=== PATIENT | female | born 1965 | race Caucasian/White ===

== ENCOUNTER 2018-08-05 11:46 | Emergency (ER) | payer OTHER, BC | END 2018-08-05 15:46 | disposition home or self-care (01) | LOC: JER 11:46 ==

== ENCOUNTER 2018-11-30 07:27 | Day surgery (SDC) | payer BC, OTHER ==
[2018-11-29 10:34] VITALS: BMI 33.5
[2018-11-30 07:56] LABS: HEMATOCRIT 45.2 % (32.4-45.2); HEMOGLOBIN 14.9 GM/dL (10.7-15.3); MCH 29.2 pg (25.7-33.7); MCHC 32.9 g/dl (32.0-36.0); MEAN CELL VOLUME 88.7 fl (80-96); MEAN PLT VOLUME 9.7 fl (7.5-11.1); PLATELET COUNT 166 K/MM3 (134-434); RBC 5.09 M/mm3 (3.60-5.2); RDW 14.3 % (11.6-15.6); WHITE BLOOD COUNT 5.8 K/mm3 (4.0-10.0)
[2018-11-30 08:17] LABS: INR 1.11 (0.83-1.09); PROTHROMBIN TIME (PATIENT) 13.1 SEC (9.7-13.0)
[2018-11-30 08:27] LABS: ALBUMIN 3.7 g/dl (3.4-5.0); BILIRUBIN,TOTAL 0.5 mg/dL (0.2-1); BLOOD UREA NITROGEN 8.9 mg/dL (7-18); CALCIUM 9.3 mg/dL (8.5-10.1); CREATININE 0.7 mg/dL (0.55-1.3); POTASSIUM 4.3 mmol/L (3.5-5.1)
[2018-11-30 09:07] VITALS: TEMP 97.8
[2018-11-30 10:59] VITALS: BP 127/74; PULSE 53
--- NOTE | 2018-12-03 17:07 | PATH ---
Surgical Pathology Report Patient Name: FELA RAPHAEL [facility]. Rec. #: [id number] /Age/Gender: 1965 (Age: 53) / F Account: [id number] Location: U-ENDOSCOPY Taken: 11/30/2018 Received: 11/30/2018 Reported: 12/03/2018 Physicians: Annalise Sy M.D. Specimen(s) Received A: RIGHT COLON POLYPS B: TRANSVERSE COLON POLYP C: RECTAL POLYPS Clinical History Colon adenoma Postoperative diagnosis: Polyps, diverticulosis Final Diagnosis A. COLON POLYPS, RIGHT, POLYPECTOMY: TUBULAR ADENOMA(S). HYPERPLASTIC POLYP(S). B. TRANSVERSE COLON POLYP, POLYPECTOMY: TUBULAR ADENOMA. C. RECTAL POLYPS, POLYPECTOMY: HYPERPLASTIC POLYP(S). Electronically Signed Joann Willams M.D. Gross Description A. Received in formalin, labeled "right colon polyps" are multiple (10) donnelly, irregular portions of soft tissue measuring 0.3 and 0.4 cm. in greatest dimension. The specimens are submitted in toto in one cassette. B. Received in formalin, labeled "transverse colon polyp" is a donnelly, irregular portion of soft tissue measuring 0.2 cm. in greatest dimension. The specimen is submitted in toto in one cassette. C. Received in formalin, labeled "rectal polyps" are 2 donnelly, irregular portions of soft tissue measuring 0.2 cm. in greatest dimension. The specimens are submitted in toto in one cassette. MLSZ/11/30/2018 sanml/11/30/2018
== END 2018-11-30 10:55 | disposition home or self-care (01) ==
LOC: JASU-ENDO 07:27
PROVIDERS: ATTEND Internal Medicine Gastroenterology
PROC: 0DBL8ZX Excision of Transverse Colon, Via Natural or Artificial Opening Endoscopic, Diagnostic (ICD-10-PCS; 2018-11-30)
PROC: 0DBP8ZX Excision of Rectum, Via Natural or Artificial Opening Endoscopic, Diagnostic (ICD-10-PCS; 2018-11-30)
PROC: 0DBK8ZX Excision of Ascending Colon, Via Natural or Artificial Opening Endoscopic, Diagnostic (ICD-10-PCS; principal; 2018-11-30 09:30)
DX: Z86.010 Personal history of colon polyps (principal); D12.2 Benign neoplasm of ascending colon; D12.3 Benign neoplasm of transverse colon; K63.5 Polyp of colon; K62.1 Rectal polyp; K57.30 Diverticulosis of large intestine without perforation or abscess without bleeding
CPT/HCPCS: 36415; 80053; 84703; 85027; 85610; 88305-TC

== ENCOUNTER 2022-01-13 09:08 | Emergency (ER) | payer BC, OTHER ==
[2022-01-13 09:18] VITALS: BMI 34.1
[2022-01-13 10:48] LABS: BASO % 0.3 % (0-2.0); EOS % 1.2 % (0-4.5); HEMATOCRIT 44.5 % (32.4-45.2); HEMOGLOBIN 15.1 GM/dL (10.7-15.3); MCH 30.4 pg (25.7-33.7); MCHC 33.9 g/dl (32.0-36.0); MEAN CELL VOLUME 89.6 fl (80-96); MEAN PLT VOLUME 9.3 fl (7.5-11.1); MONO % 9.4 % (3.8-10.2); NEUT % 65.1 % (42.8-82.8); PLATELET COUNT 162 10^3/uL (134-434); RBC 4.96 M/mm3 (3.60-5.2); RDW 14.4 % (11.6-15.6); WHITE BLOOD COUNT 6.9 K/mm3 (4.0-10.0)
[2022-01-13 11:07] LABS: PROTHROMBIN TIME (PATIENT) 134.1 SEC (9.7-13.0)
[2022-01-13 11:08] LABS: INR 11.38 (0.83-1.09)
[2022-01-13] MEDS ORDERED: PHYTONADIONE 5 MG TABLET PO ONE (11:12)
[2022-01-13] MEDS ORDERED: PHYTONADIONE 5 MG TABLET ONE (11:26)
[2022-01-13 11:36] VITALS: BP 120/74; PULSE 62; RESP 16; TEMP 98.2
== END 2022-01-13 11:37 | disposition home or self-care (01) ==
LOC: JER 09:08
DX: R79.1 Abnormal coagulation profile (principal)
CPT/HCPCS: 36415; 85025; 85027; 85610; 85730; 99283-25

== ENCOUNTER 2022-01-14 08:20 | Emergency (ER) | payer BC, OTHER ==
[2022-01-14 08:26] VITALS: BP 131/83; PULSE 64; RESP 16; TEMP 98.1; BMI 34.1
[2022-01-14 10:33] LABS: INR 3.84 (0.83-1.09); PROTHROMBIN TIME (PATIENT) 44.8 SEC (9.7-13.0)
== END 2022-01-14 11:28 | disposition home or self-care (01) ==
LOC: JER 08:20
DX: R79.1 Abnormal coagulation profile (principal)
CPT/HCPCS: 36415; 85610; 93005; 93010; 99284-25

== ENCOUNTER 2022-02-25 04:41 | Day surgery (SDC) | payer BC, OTHER ==
[2022-02-23 11:38] VITALS: BMI 34.4
[2022-02-25 10:25] LABS: BASO % 0.6 % (0-2.0); EOS % 1.3 % (0-4.5); HEMATOCRIT 44.2 % (32.4-45.2); HEMOGLOBIN 14.7 GM/dL (10.7-15.3); LYMPH % 28.6 % (8-40); MCH 29.7 pg (25.7-33.7); MCHC 33.2 g/dl (32.0-36.0); MEAN CELL VOLUME 89.4 fl (80-96); MEAN PLT VOLUME 9.3 fl (7.5-11.1); MONO % 7.4 % (3.8-10.2); NEUT % 62.1 % (42.8-82.8); PLATELET COUNT 181 10^3/uL (134-434); RBC 4.94 M/mm3 (3.60-5.2); RDW 14.3 % (11.6-15.6)
[2022-02-25 10:30] LABS: INR 1.15 (0.83-1.09); PROTHROMBIN TIME (PATIENT) 13.2 SEC (9.7-13.0)
[2022-02-25 10:45] LABS: ALBUMIN 3.4 g/dl (3.4-5.0); BLOOD UREA NITROGEN 10.4 mg/dL (7-18); CALCIUM 9.2 mg/dL (8.5-10.1); CO2 31 mmol/L (21-32); GLUCOSE,RANDOM 108 mg/dL (74-106); LIPASE 168 U/L (73-393)
[2022-02-25 10:48] LABS: CREATININE 0.7 mg/dL (0.55-1.3); SGOT/AST 68 U/L (15-37); SGPT/ALT 101 U/L (13-61)
[2022-02-25 10:50] LABS: BILIRUBIN,TOTAL 0.6 mg/dL (0.2-1); TOT PROT 7.1 g/dl (6.4-8.2)
[2022-02-25 10:51] LABS: ALK PHOS 102 U/L (45-117)
[2022-02-25 11:05] VITALS: TEMP 97.8
[2022-02-25 11:16] LABS: ANION GAP 5 MMOL/L (8-16); CHLORIDE 106 mmol/L (98-107); SODIUM 142 mmol/L (136-145)
[2022-02-25 11:19] VITALS: RESP 16
[2022-02-25 11:44] VITALS: BP 127/77; PULSE 69
== END 2022-02-25 12:06 | disposition home or self-care (01) ==
LOC: JASU-ENDO 04:41
PROVIDERS: ATTEND Internal Medicine Gastroenterology
PROC: 0DBP8ZX Excision of Rectum, Via Natural or Artificial Opening Endoscopic, Diagnostic (ICD-10-PCS; principal; 2022-02-25 10:00)
DX: Z12.11 Encounter for screening for malignant neoplasm of colon (principal); D12.8 Benign neoplasm of rectum; K57.30 Diverticulosis of large intestine without perforation or abscess without bleeding; Z86.010 Personal history of colon polyps; Z83.71 Family history of colonic polyps
CPT/HCPCS: 36415; 80053; 82390; 83690; 85025; 85610; 86140; 86301; 86803; 88305-TC